=== PATIENT | female | born 1995 | race African-American/Black ===

== ENCOUNTER 2018-09-21 01:11 | Emergency (ER) | payer OTHER ==
[2018-09-21 02:02] LABS: Absolute Lymphocytes (CBC) 1.9 K/uL (0.7-4.9); Absolute Monocytes 0.5 K/uL (0.1-1.3); Absolute Neutrophil 7.5 K/uL (1.8-8.0); Basophils % 0.4 % (0-1.3); Eosinophils % 0.6 % (0-4.4); Hematocrit 41.6 % (36.0-45.0); Lymphocytes % 18.6 % (15.3-44.8); MPV 8.6 fL (7.6-11.3); Monocytes % 5.1 % (3.3-12.3)
[2018-09-21] MEDS ORDERED: NA CHLORIDE 0.9% 1,000 ML ONE (02:07)
[2018-09-21] MEDS ORDERED: DIPHENHYDRAMINE 50 MG/ML VIAL ONE (02:07)
[2018-09-21] MEDS ORDERED: ONDANSETRON 4 MG/2 ML VIAL ONE (02:07)
[2018-09-21 02:36] LABS: BUN Blood Urea Nitrogen 10 mg/dL (7-18); Bicarbonate 21 mmol/L (21-32); Glucose Level 93 mg/dL (74-106); HCG, Quantitative 84396 mIU/mL (1-3); Lipase 79 U/L (73-393); Potassium 3.3 mmol/L (3.5-5.1); Sodium Level 138 mmol/L (136-145)
--- NOTE | 2018-09-21 02:57 | ER ---
Nurse's Notes [facility] Name: Tessa Box Age: 23 yrs Sex: Female : 1995 Arrival Date: 09/21/2018 Time: 01:13 Bed 15 Private MD: Diagnosis: Hyperemesis gravidarum with metabolic disturbance Presentation: 09/21 01:17 Presenting complaint: Patient states: she is 10 weeks and has been vomiting x bb 2 days, was taking Diclegis but she ran out. Transition of care: patient was not received from another setting of care. Onset of symptoms was September 19, 2018. Risk Assessment: Do you want to hurt yourself or someone else? Patient reports no desire to harm self or others. Initial Sepsis Screen: Does the patient meet any 2 criteria? No. Patient's initial sepsis screen is negative. Does the patient have a suspected source of infection? No. Patient's initial sepsis screen is negative. Care prior to arrival: None. 01:17 Method Of Arrival: Ambulatory bb 01:17 Acuity: ADDISON 3 bb 01:21 Note pt is having pain to the back of left arm started in left shoulder and has bb radiated down left tricep. Triage Assessment: 01:40 General: Appears uncomfortable, Behavior is calm, cooperative. Pain: Denies pain. EENT: ak1 No signs and/or symptoms were reported regarding the EENT system. Neuro: No deficits noted. Cardiovascular: No deficits noted. Respiratory: Reports. GI: Reports nausea, vomiting. : No signs and/or symptoms were reported regarding the genitourinary system. Derm: No signs and/or symptoms reported regarding the dermatologic system. Musculoskeletal: No signs and/or symptoms reported regarding the musculoskeletal system. 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 - Social history:: Smoking status: Patient/guardian denies using tobacco, Patient/guardian denies using alcohol, street drugs, The patient lives with family. - Ebola Screening: : No symptoms or risks identified at this time. - Family history:: not pertinent. Screenin:39 Abuse screen: Denies threats or abuse. Denies injuries from another. Nutritional ak1 screening: No deficits noted. Tuberculosis screening: No symptoms or risk factors identified. Fall Risk None identified. Assessment: 03:22 GI: Abdomen is flat. ak1 Vital Signs: 01:19 BP 114 / 59; Pulse 89; Resp 18 S; Temp 98.1(O); Pulse Ox 99% on R/A; Weight 62.14 kg bb (R); Height 5 ft. 4 in. (162.56 cm) (R); Pain 5/10; 01:19 Body Mass Index 23.52 (62.14 kg, 162.56 cm) bb ED Course: 01:13 Patient arrived in ED. es 01:19 Triage completed. bb 01:19 Arm band placed on Patient placed in an exam room, on a stretcher. bb 01:26 Jazmine Clemente MD is Attending Physician. ma2 01:39 Kamryn Tejeda RN is Primary Nurse. ak1 01:39 Patient has correct armband on for positive identification. Pulse ox on. NIBP on. ak1 01:51 Inserted saline lock: 20 gauge in left antecubital area, using aseptic technique. Blood oe collected. 03:22 No provider procedures requiring assistance completed. IV discontinued, intact, ak1 bleeding controlled, No redness/swelling at site. Pressure dressing applied. Administered Medications: 02:20 Drug: NS 0.9% 1000 ml Route: IV; Rate: 1 bolus; Site: left antecubital; ak1 02:57 Follow up: IV Status: Completed infusion; IV Intake: 1000ml ak1 02:20 Drug: Benadryl 25 mg Route: IVP; Site: left antecubital; ak1 02:42 Follow up: Response: No adverse reaction ak1 02:20 Drug: Zofran 4 mg Route: IVP; Site: left antecubital; ak1 02:42 Follow up: Response: No adverse reaction ak1 Intake: 02:57 IV: 1000ml; Total: 1000ml. ak1 Outcome: 02:56 Discharge ordered by . ma2 03:23 Discharged to home ambulatory, with family. ak1 03:23 Condition: good 03:23 Discharge instructions given to patient, family, Instructed on discharge instructions, follow up and referral plans. medication usage, Demonstrated understanding of instructions, follow-up care, medications, Prescriptions given X 2. 03:24 Patient left the ED. ak1 Signatures: Senait Hidalgo Brenda, RN RN Kamryn Cadet RN RN ak1 Jorgito Johnson Mohammad, MD MD ma2
--- NOTE | 2018-09-21 02:57 | EDPHYS ---
Physician Documentation [facility] Name: Tessa Box Age: 23 yrs Sex: Female : 1995 Arrival Date: 09/21/2018 Time: 01:13 Bed 15 Private MD: ED Physician Jazmine Clemente HPI: 09/21 01:50 This 23 yrs old Black Female presents to ER via Ambulatory with complaints of Vomiting, ma2 10 weeks preg. 01:50 The patient presents to the emergency department with nausea, vomiting. Onset: The ma2 symptoms/episode began/occurred gradually, 1 week(s) ago. Possible causes: . Associated signs and symptoms: Pertinent negatives:. Severity of symptoms: At their worst the symptoms were moderate in the emergency department the symptoms are unchanged. The patient has experienced similar episodes in the past. 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 - Social history:: Smoking status: Patient/guardian denies using tobacco, Patient/guardian denies using alcohol, street drugs, The patient lives with family. - Ebola Screening: : No symptoms or risks identified at this time. - Family history:: not pertinent. ROS: 01:50 Constitutional: Negative for fever, chills, and weight loss, Cardiovascular: Negative ma2 for chest pain, palpitations, and edema, Respiratory: Negative for shortness of breath, cough, wheezing, and pleuritic chest pain, Abdomen/GI: Negative for abdominal pain, nausea, diarrhea, and constipation, Psych: Negative for depression, anxiety, suicide ideation, homicidal ideation, and hallucinations, Endocrine: Negative for neck swelling, polydipsia, polyuria, polyphagia, and marked weight changes. 01:50 Abdomen/GI: Positive for nausea and vomiting, Negative for abdominal pain, diarrhea, flatulence. 01:50 All other systems are negative. Exam: 01:50 Constitutional: This is a well developed, well nourished patient who is awake, alert, ma2 and in no acute distress. Chest/axilla: Normal chest wall appearance and motion. Nontender with no deformity. No lesions are appreciated. Cardiovascular: Regular rate and rhythm with a normal S1 and S2. No gallops, murmurs, or rubs. Normal PMI, no JVD. No pulse deficits. Respiratory: Lungs have equal breath sounds bilaterally, clear to auscultation and percussion. No rales, rhonchi or wheezes noted. No increased work of breathing, no retractions or nasal flaring. Abdomen/GI: Soft, non-tender, with normal bowel sounds. No distension or tympany. No guarding or rebound. No evidence of tenderness throughout. Neuro: Awake and alert, GCS 15, oriented to person, place, time, and situation. Cranial nerves II-XII grossly intact. Motor strength 5/5 in all extremities. Sensory grossly intact. Cerebellar exam normal. Normal gait. Vital Signs: 01:19 BP 114 / 59; Pulse 89; Resp 18 S; Temp 98.1(O); Pulse Ox 99% on R/A; Weight 62.14 kg bb (R); Height 5 ft. 4 in. (162.56 cm) (R); Pain 5/10; 01:19 Body Mass Index 23.52 (62.14 kg, 162.56 cm) bb MDM: 01:26 Patient medically screened. [facility] 01:50 Differential diagnosis: Nonspecific abd pain, gastritis, pancreatitis, viral md2 gastroenteritis. 02:55 Data reviewed: vital signs, nurses notes. Counseling: I had a detailed discussion with [facility] the patient and/or guardian regarding: the historical points, exam findings, and any diagnostic results supporting the discharge/admit diagnosis, the presence of at least one elevated blood pressure reading (>120/80) during this emergency department visit, the need for outpatient follow up. Response to treatment: the patient's symptoms have resolved after treatment. 09/21 01:31 Order name: Quantitative Hcg; Complete Time: 02:50 [facility] 09/21 01:31 Order name: Basic Metabolic Panel; Complete Time: 02:50 md2 09/21 01:31 Order name: CBC with Diff; Complete Time: 02:27 [facility] 09/21 01:31 Order name: Lipase; Complete Time: 02:50 md2 09/21 01:31 Order name: IV Saline Lock; Complete Time: 02:20 ma2 09/21 01:31 Order name: Labs collected and sent; Complete Time: ma2 Administered Medications: 02:20 Drug: NS 0.9% 1000 ml Route: IV; Rate: 1 bolus; Site: left antecubital; ak1 02:57 Follow up: IV Status: Completed infusion; IV Intake: 1000ml ak1 02:20 Drug: Benadryl 25 mg Route: IVP; Site: left antecubital; ak1 02:42 Follow up: Response: No adverse reaction ak1 02:20 Drug: Zofran 4 mg Route: IVP; Site: left antecubital; ak1 02:42 Follow up: Response: No adverse reaction ak1 Disposition: 09/21/18 02:56 Discharged to Home. Impression: Hyperemesis gravidarum with metabolic disturbance. - Condition is Stable. - Discharge Instructions: Hyperemesis Gravidarum. - Prescriptions for pyridoxine (vitamin B6) - take 1 tablet by ORAL route every 24 hours; 21 tablet. Benadryl 25 mg Oral Capsule - take 1 capsule by ORAL route every 6 hours As needed; 30 tablet. - Medication Reconciliation Form, Thank You Letter, Antibiotic Education, Prescription Opioid Use form. - Follow up: Private Physician; When: Tomorrow; Reason: Continuance of care. Signatures: Dispatcher [employer] Sheree Purdy RN RN bb Krenek, Amber, RN RN ak1 Jazmine Clemente MD MD ma2 Corrections: (The following items were deleted from the chart) 03:24 02:56 09/21/2018 02:56 Discharged to Home. Impression: Hyperemesis gravidarum with ak1 metabolic disturbance. Condition is Stable. Forms are Medication Reconciliation Form, Thank You Letter, Antibiotic Education, Prescription Opioid Use. Follow up: Private Physician; When: Tomorrow; Reason: Continuance of care. ma2
== END 2018-09-21 03:24 | disposition home or self-care (01) ==
LOC: ER 01:11
DX: O21.1 Hyperemesis gravidarum with metabolic disturbance (principal); Z3A.10 10 weeks gestation of pregnancy
CPT/HCPCS: 36415; 80048; 83690; 84702; 85025; J2405; J7030